=== PATIENT | male | born 1960 | race Caucasian/White ===

== ENCOUNTER 2017-10-30 11:06 | Inpatient (IN) ==
[2017-10-30] MEDS ORDERED: SODIUM CHLORIDE 0.9% 1,000 ML IV STA ×2 (11:15→13:36)
[2017-10-30 11:57] LABS: Alanine Aminotransferase 19 U/L (16-61); Albumin 3.8 G/DL (3.4-5.0); Alkaline Phosphatase 126 U/L (45-117); Aspartate Amino Transferase 16 U/L (0-37); Blood Urea Nitrogen 10 MG/DL (7-18); Calcium 9.2 MG/DL (8.5-10.1); Glucose 93 MG/DL (74-106); Osmolality,Calculated 262.5 MOS/KG (273-304); Potassium 4.9 MMOL/L (3.5-5.1); Sodium 132 MMOL/L (136-145)
[2017-10-30 12:03] LABS: Amorphous Crystals,Urine Occasional /HPF (Few); Apearance,Urine CLEAR (Clear); Bilirubin,Urine Negative (Negative); Blood, Urine Negative (Negative); Glucose,Urine (UA) Negative (Negative); Ketones,Urine Negative (Negative); Mucus,Urine Occasional /LPF (Occasional); Nitrite,Urine Negative (Negative); Protein,Urine Negative; RBC,Urine 1 /HPF (0-4); Squamous Epithelial Cell,Urine Occasional /HPF (0-10); Urine Color Yellow (Yellow); Urine Specific Gravity 1.011 (1.001-1.035); Urine Urobilinogen < 2.0 EU/DL (0.2-1.0); WBC,Urine 1 /HPF (0-6)
[2017-10-30] MEDS ORDERED: ROCURONIUM 100 MG/10 ML VIAL IV ONE ×2 (12:06→12:07)
[2017-10-30] MEDS ORDERED: ETOMIDATE 20 MG/10 ML VIAL IV ONE ×2 (12:06→12:07)
[2017-10-30] MEDS ORDERED: PROPOFOL 1,000 MG/100 ML BOTTLE IV ONE (12:07)
[2017-10-30 12:08] LABS: Barbiturates Screen,Urine Negative (Negative); Benzodiazepines Screen,Urine Negative (Negative); Cannabinoid Screen,Urine Negative (Negative); Opiate Screen,Urine Positive (Negative); Phencyclidine Screen,Urine Negative (Negative)
[2017-10-30] MEDS ORDERED: ASPIRIN 300 MG SUPP RECTAL STA (12:09)
[2017-10-30 12:13] LABS: Lactic Acid 1.2 MMOL/L (0.4-2.0)
[2017-10-30 12:42] LABS: ABG Base Excess -2.9 MMOL/L (-2.5-2.5); ABG Oxygen Saturation 99.5 % (95-100); ABG PCO2 39.8 MM HG (35-48); ABG PH 7.357 (7.35-7.45); ABG TCO2 18.7 MMOL/L (23-27)
[2017-10-30] MEDS: PROPOFOL 1,000 MG/100 ML BOTTLE IV SCH ×3 (12:42→23:45)
[2017-10-30 12:46] LABS: Basophils # 0.1 10*3/uL (0.0-0.2); Basophils % 0.6 % (0.0-0.8); Eosinophils # 0.1 10*3/uL (0.0-0.87); Eosinophils % 1.2 % (0.00-10.9); Hematocrit 48.6 VOL% (42.0-52.0); Hemoglobin 17.3 GM/DL (14.0-18.0); Immature Granulocytes % 0.4 %; Immature Granulocytes Absolute 0.05 #; Lymphocytes # 1.7 10*3/uL (1.4-4.0); Lymphocytes % 14.5 % (21.2-54.2); Mean Corpuscular HGB Conc 35.6 GM/DL (32-36); Mean Corpuscular Hemoglobin 30 PG (27-34); Mean Corpuscular Volume 84.8 FL (87-102); Monocytes % 8.9 % (1.7-12.7); Neutrophils # 8.5 10*3/uL (1.4-7.4); Neutrophils % 74.4 % (38.7-73.9); Platelet Count 219 T/CUMM (130-400); Red Blood Count 5.73 MC/CUMM (3.8-5.5); Red Cell Distribution Width 14.9 % (9.3-17.3); White Blood Count 11.5 T/CUMM (4-12)
[2017-10-30 12:54] LABS: PT Patient Result 10.5 SECS; Partial Thromboplastin Time 26.9 SECS (0-40)
[2017-10-30] MEDS ORDERED: levETIRAcetam 500 MG/5 ML VIAL IV ONE (14:09)
[2017-10-30] MEDS ORDERED: MIDAZOLAM 10 MG/2 ML VIAL IV STA (14:13)
[2017-10-30] MEDS ORDERED: ONDANSETRON 4 MG/2 ML VIAL IV PRN (15:24)
[2017-10-30] MEDS: SODIUM CHLORIDE 0.9% 1,000 ML IV SCH (15:31)
[2017-10-30] MEDS: cefTRIAXone 1,000 MG in SYRINGE 1 EACH IV SCH (15:43)
[2017-10-30] MEDS: ENOXAPARIN 80 MG/0.8 ML SYRINGE SUBCUT SCH (15:43)
[2017-10-30 17:55] LABS: ABG Base Excess -3.5 MMOL/L (-2.5-2.5); ABG HCO3 21.5 MMOL/L (20-26); ABG Oxygen Saturation 98.5 % (95-100); ABG PCO2 32.7 MM HG (35-48); ABG TCO2 17.3 MMOL/L (23-27)
[2017-10-31] MEDS: SODIUM CHLORIDE 0.9% 1,000 ML IV SCH ×3 (00:02→18:12)
[2017-10-31] MEDS: ALBUTEROL/IPRATROPIUM 3 ML NEB RESP TX SCH ×7 (00:35→23:08)
[2017-10-31 02:27] LABS: Allen Test Positive; Pt O2 Delivery Device Ventilator
[2017-10-31 02:28] LABS: ABG Base Excess -4.2 MMOL/L (-2.5-2.5); ABG Oxygen Saturation 99.1 % (95-100); ABG PCO2 32.6 MM HG (35-48); ABG TCO2 16.9 MMOL/L (23-27)
[2017-10-31] MEDS ORDERED: levETIRAcetam 500 MG/5 ML VIAL IV ONE (02:33)
[2017-10-31] MEDS ORDERED: LORazepam 2 MG/1 ML VIAL IV ONE (02:40)
[2017-10-31] MEDS: ENOXAPARIN 80 MG/0.8 ML SYRINGE SUBCUT SCH ×2 (02:47→18:13)
[2017-10-31] MEDS: PROPOFOL 1,000 MG/100 ML BOTTLE IV SCH ×2 (04:50→18:11)
[2017-10-31 05:07] LABS: Basophils # 0.1 10*3/uL (0.0-0.2); Basophils % 0.7 % (0.0-0.8); Eosinophils # 0.2 10*3/uL (0.0-0.87); Eosinophils % 1.6 % (0.00-10.9); Hematocrit 40.8 VOL% (42.0-52.0); Hemoglobin 13.9 GM/DL (14.0-18.0); Immature Granulocytes % 0.4 %; Immature Granulocytes Absolute 0.04 #; Lymphocytes # 1.2 10*3/uL (1.4-4.0); Lymphocytes % 12.3 % (21.2-54.2); Mean Corpuscular HGB Conc 34.1 GM/DL (32-36); Mean Corpuscular Hemoglobin 30 PG (27-34); Mean Platelet Volume 11.8 FL (9.6-12.0); Monocytes # 0.7 10*3/uL (0.11-0.8); Monocytes % 7.3 % (1.7-12.7); Neutrophils # 7.6 10*3/uL (1.4-7.4); Neutrophils % 77.7 % (38.7-73.9); Platelet Count 184 T/CUMM (130-400); Red Blood Count 4.69 MC/CUMM (3.8-5.5); Red Cell Distribution Width 15.2 % (9.3-17.3); White Blood Count 9.8 T/CUMM (4-12)
[2017-10-31 05:37] LABS: Risk Ratio 4.68
[2017-10-31 05:39] LABS: Albumin 2.8 G/DL (3.4-5.0); Bilirubin,Total 1.6 MG/DL (0.2-1.0); Potassium 3.8 MMOL/L (3.5-5.1); Total Protein 6.3 G/DL (6.4-8.3)
[2017-10-31] MEDS: ASPIRIN 325 MG TABLET PO SCH (11:00)
[2017-10-31] MEDS: FAMOTIDINE 20 MG TABLET PO SCH (11:00)
[2017-10-31] MEDS: CLOPIDOGREL 75 MG TABLET PO SCH (11:00)
[2017-10-31] MEDS: HALOPERIDOL 5 MG/ML AMP IV SCH ×2 (11:44→20:30)
[2017-10-31] MEDS: cefTRIAXone 1,000 MG in SYRINGE 1 EACH IV SCH (11:45)
[2017-10-31] MEDS ORDERED: DEXTROSE 50% 25 GM/50 ML VIAL IV PRN (12:28)
[2017-10-31] MEDS ORDERED: GLUCAGON 1 MG VIAL IM PRN (12:28)
[2017-10-31] MEDS: fentaNYL INJ 1,250 MCG in SODIUM CHLORIDE 0.9% 225 ML IV PRN (18:13)
[2017-10-31] MEDS: INSULIN REGULAR 100 UNIT/ML SUBCUT SCH (18:14)
[2017-10-31] MEDS: SIMVASTATIN 20 MG TABLET PO SCH (20:30)
[2017-11-01] MEDS: INSULIN REGULAR 100 UNIT/ML SUBCUT SCH ×5 (00:06→23:45)
[2017-11-01] MEDS: SODIUM CHLORIDE 0.9% 1,000 ML IV SCH ×3 (01:50→19:33)
[2017-11-01] MEDS: fentaNYL INJ 1,250 MCG in SODIUM CHLORIDE 0.9% 225 ML IV PRN ×3 (02:10→17:21)
[2017-11-01] MEDS: ALBUTEROL/IPRATROPIUM 3 ML NEB RESP TX SCH ×6 (02:32→22:59)
[2017-11-01] MEDS: ENOXAPARIN 80 MG/0.8 ML SYRINGE SUBCUT SCH ×2 (04:23→15:48)
[2017-11-01 04:32] LABS: Basophils # 0.1 10*3/uL (0.0-0.2); Basophils % 0.9 % (0.0-0.8); Eosinophils # 0.2 10*3/uL (0.0-0.87); Eosinophils % 2.9 % (0.00-10.9); Hematocrit 37.8 VOL% (42.0-52.0); Hemoglobin 12.7 GM/DL (14.0-18.0); Immature Granulocytes % 0.5 %; Immature Granulocytes Absolute 0.03 #; Lymphocytes # 1.6 10*3/uL (1.4-4.0); Lymphocytes % 24.5 % (21.2-54.2); Mean Corpuscular HGB Conc 33.6 GM/DL (32-36); Mean Corpuscular Hemoglobin 30 PG (27-34); Mean Corpuscular Volume 89.2 FL (87-102); Mean Platelet Volume 11.3 FL (9.6-12.0); Monocytes # 0.8 10*3/uL (0.11-0.8); Monocytes % 11.6 % (1.7-12.7); Neutrophils # 3.9 10*3/uL (1.4-7.4); Neutrophils % 59.6 % (38.7-73.9); Platelet Count 158 T/CUMM (130-400); Red Blood Count 4.24 MC/CUMM (3.8-5.5); Red Cell Distribution Width 15.3 % (9.3-17.3); White Blood Count 6.5 T/CUMM (4-12)
[2017-11-01 04:40] LABS: Allen Test Positive; Pt O2 Delivery Device Ventilator
[2017-11-01 04:41] LABS: ABG Oxygen Saturation 93.3 % (95-100); ABG PCO2 38.3 MM HG (35-48); ABG PH 7.357 (7.35-7.45); ABG PO2 75.6 MM HG (80-95); ABG TCO2 22.2 MMOL/L (23-27)
[2017-11-01 05:09] LABS: Calcium 7.5 MG/DL (8.5-10.1); Osmolality,Calculated 275.5 MOS/KG (273-304); Potassium 4.2 MMOL/L (3.5-5.1); Prealbumin 11.8 MG/DL (20-40)
[2017-11-01] MEDS: PROPOFOL 1,000 MG/100 ML BOTTLE IV SCH ×3 (05:15→22:47)
[2017-11-01] MEDS ORDERED: LIDOCAINE 2% 20 ML VIAL RESP TX ONE (06:57)
[2017-11-01] MEDS ORDERED: LIDOCAINE 1% 20 ML VIAL MISC INJ ONE (06:57)
[2017-11-01] MEDS: CLINDAMYCIN INJ 600 MG in PREMIX 1 EACH IV SCH ×3 (07:39→23:36)
[2017-11-01] MEDS: PIPERACILLIN/TAZOBACTAM 3,375 MG in SODIUM CHLORIDE 0.9% 100 ML IV SCH ×2 (07:40→15:48)
[2017-11-01] MEDS: HALOPERIDOL 5 MG/ML AMP IV SCH ×2 (08:47→20:13)
[2017-11-01] MEDS: FAMOTIDINE 20 MG TABLET PO SCH (08:47)
[2017-11-01] MEDS: ASPIRIN 325 MG TABLET PO SCH (08:47)
[2017-11-01] MEDS: CLOPIDOGREL 75 MG TABLET PO SCH (08:48)
[2017-11-01] MEDS: DEXTROSE 5% NACL 0.45% 1,000 ML IV SCH ×3 (12:02→23:25)
[2017-11-01] MEDS: SIMVASTATIN 20 MG TABLET PO SCH (20:13)
[2017-11-02] MEDS: PIPERACILLIN/TAZOBACTAM 3,375 MG in SODIUM CHLORIDE 0.9% 100 ML IV SCH ×4 (00:14→23:23)
[2017-11-02] MEDS: fentaNYL INJ 1,250 MCG in SODIUM CHLORIDE 0.9% 225 ML IV PRN ×4 (00:49→23:46)
[2017-11-02] MEDS: ALBUTEROL/IPRATROPIUM 3 ML NEB RESP TX SCH ×6 (03:01→23:10)
[2017-11-02] MEDS: ENOXAPARIN 80 MG/0.8 ML SYRINGE SUBCUT SCH ×2 (03:27→15:35)
[2017-11-02 03:44] LABS: ABG Base Excess -4.8 MMOL/L (-2.5-2.5); ABG HCO3 20.5 MMOL/L (20-26); ABG Oxygen Saturation 98.1 % (95-100); ABG PCO2 39.1 MM HG (35-48); ABG PH 7.332 (7.35-7.45); ABG TCO2 18.7 MMOL/L (23-27)
[2017-11-02 03:51] LABS: Basophils # 0.1 10*3/uL (0.0-0.2); Basophils % 0.9 % (0.0-0.8); Eosinophils # 0.2 10*3/uL (0.0-0.87); Hematocrit 35.2 VOL% (42.0-52.0); Immature Granulocytes % 0.4 %; Immature Granulocytes Absolute 0.03 #; Mean Corpuscular HGB Conc 34.1 GM/DL (32-36); Mean Corpuscular Hemoglobin 31 PG (27-34); Mean Corpuscular Volume 89.8 FL (87-102); Mean Platelet Volume 11.5 FL (9.6-12.0); Monocytes # 0.8 10*3/uL (0.11-0.8); Monocytes % 11.8 % (1.7-12.7); Neutrophils # 4.6 10*3/uL (1.4-7.4); Neutrophils % 68.9 % (38.7-73.9); Platelet Count 122 T/CUMM (130-400); Red Blood Count 3.92 MC/CUMM (3.8-5.5); Red Cell Distribution Width 15.3 % (9.3-17.3); White Blood Count 6.7 T/CUMM (4-12)
[2017-11-02 04:29] LABS: Calcium 7.5 MG/DL (8.5-10.1); Osmolality,Calculated 270.1 MOS/KG (273-304); Potassium 4.3 MMOL/L (3.5-5.1)
[2017-11-02] MEDS: DEXTROSE 5% NACL 0.45% 1,000 ML IV SCH ×2 (04:42→09:10)
[2017-11-02] MEDS ORDERED: ALBUTEROL NEB SOLN 5 MG/ML 20 ML/BOTTLE RESP TX PRN (05:30)
[2017-11-02] MEDS ORDERED: FUROSEMIDE 40 MG/4 ML VIAL IV ONE (05:38)
[2017-11-02] MEDS: INSULIN REGULAR 100 UNIT/ML SUBCUT SCH ×4 (05:45→23:23)
[2017-11-02] MEDS ORDERED: LEVALBUTEROL 1.25 MG/3 ML NEB RESP TX PRN (05:48)
[2017-11-02] MEDS: methylPREDNISolone SOD SUC 40 MG/1 ML VIAL IV SCH ×3 (05:53→21:18)
[2017-11-02] MEDS: CLINDAMYCIN INJ 600 MG in PREMIX 1 EACH IV SCH ×3 (07:41→23:02)
[2017-11-02] MEDS: FAMOTIDINE 20 MG TABLET PO SCH (08:55)
[2017-11-02] MEDS: CLOPIDOGREL 75 MG TABLET PO SCH (08:55)
[2017-11-02] MEDS: ASPIRIN 325 MG TABLET PO SCH (08:55)
[2017-11-02] MEDS: HALOPERIDOL 5 MG/ML AMP IV SCH ×2 (10:02→20:45)
[2017-11-02] MEDS: PROPOFOL 1,000 MG/100 ML BOTTLE IV SCH (13:41)
[2017-11-02] MEDS: SIMVASTATIN 20 MG TABLET PO SCH (20:44)
[2017-11-03] MEDS: PROPOFOL 1,000 MG/100 ML BOTTLE IV SCH ×2 (01:27→15:54)
[2017-11-03] MEDS: ENOXAPARIN 80 MG/0.8 ML SYRINGE SUBCUT SCH ×2 (02:31→16:44)
[2017-11-03] MEDS: ALBUTEROL/IPRATROPIUM 3 ML NEB RESP TX SCH ×6 (03:43→22:36)
[2017-11-03 03:49] LABS: Hematocrit 37.5 VOL% (42.0-52.0); Hemoglobin 12.6 GM/DL (14.0-18.0); Immature Granulocytes % 0.3 %; Immature Granulocytes Absolute 0.02 #; Lymphocytes # 0.3 10*3/uL (1.4-4.0); Lymphocytes % 5.2 % (21.2-54.2); Mean Corpuscular HGB Conc 33.6 GM/DL (32-36); Mean Corpuscular Hemoglobin 30 PG (27-34); Mean Corpuscular Volume 88.7 FL (87-102); Mean Platelet Volume 11.3 FL (9.6-12.0); Monocytes # 0.2 10*3/uL (0.11-0.8); Monocytes % 3.8 % (1.7-12.7); Neutrophils # 5.6 10*3/uL (1.4-7.4); Neutrophils % 90.7 % (38.7-73.9); Platelet Count 170 T/CUMM (130-400); Red Blood Count 4.23 MC/CUMM (3.8-5.5); Red Cell Distribution Width 15.1 % (9.3-17.3); White Blood Count 6.1 T/CUMM (4-12)
[2017-11-03 03:50] LABS: ABG Base Excess -2.3 MMOL/L (-2.5-2.5); ABG HCO3 22.4 MMOL/L (20-26); ABG Oxygen Saturation 95.5 % (95-100); ABG PCO2 38.4 MM HG (35-48); ABG PH 7.384 (7.35-7.45); ABG PO2 84.3 MM HG (80-95); ABG TCO2 23.6 MMOL/L (23-27); Allen Test Positive; Pt O2 Delivery Device Ventilator
[2017-11-03 04:04] LABS: Calcium 8.4 MG/DL (8.5-10.1); Potassium 4.4 MMOL/L (3.5-5.1)
[2017-11-03] MEDS: INSULIN REGULAR 100 UNIT/ML SUBCUT SCH ×3 (05:04→18:10)
[2017-11-03] MEDS: methylPREDNISolone SOD SUC 40 MG/1 ML VIAL IV SCH ×3 (05:04→21:13)
[2017-11-03 05:10] LABS: Band Neutrophils 2 % (0-10); Eosinophils 1 % (0-10); Lymphocytes 4 % (20-55); Platelet Estimate Normal; Segmented Neutrophils 91 % (50-85); Total Cells Counted 100
[2017-11-03 05:11] LABS: Anisocytosis Slight; Macrocytosis Slight
[2017-11-03] MEDS: CLINDAMYCIN INJ 600 MG in PREMIX 1 EACH IV SCH ×3 (08:12→23:09)
[2017-11-03] MEDS: HALOPERIDOL 5 MG/ML AMP IV SCH ×2 (08:12→21:12)
[2017-11-03] MEDS: CLOPIDOGREL 75 MG TABLET PO SCH (08:17)
[2017-11-03] MEDS: FAMOTIDINE 20 MG TABLET PO SCH (08:17)
[2017-11-03] MEDS: ASPIRIN 325 MG TABLET PO SCH (08:17)
[2017-11-03] MEDS: fentaNYL INJ 1,250 MCG in SODIUM CHLORIDE 0.9% 225 ML IV PRN ×2 (08:33→15:50)
[2017-11-03] MEDS: PIPERACILLIN/TAZOBACTAM 3,375 MG in SODIUM CHLORIDE 0.9% 100 ML IV SCH ×2 (08:49→17:05)
[2017-11-03] MEDS: SIMVASTATIN 20 MG TABLET PO SCH (21:13)
[2017-11-04] MEDS: fentaNYL INJ 1,250 MCG in SODIUM CHLORIDE 0.9% 225 ML IV PRN ×2 (00:06→11:22)
[2017-11-04] MEDS: PIPERACILLIN/TAZOBACTAM 3,375 MG in SODIUM CHLORIDE 0.9% 100 ML IV SCH ×3 (00:36→16:23)
[2017-11-04] MEDS: INSULIN REGULAR 100 UNIT/ML SUBCUT SCH ×4 (00:36→18:31)
[2017-11-04] MEDS: ALBUTEROL/IPRATROPIUM 3 ML NEB RESP TX SCH ×6 (02:37→23:11)
[2017-11-04] MEDS: PROPOFOL 1,000 MG/100 ML BOTTLE IV SCH ×2 (03:16→13:50)
[2017-11-04] MEDS: ENOXAPARIN 80 MG/0.8 ML SYRINGE SUBCUT SCH ×2 (03:39→16:26)
[2017-11-04 03:49] LABS: ABG Base Excess -0.1 MMOL/L (-2.5-2.5); ABG HCO3 24.2 MMOL/L (20-26); ABG Oxygen Saturation 93.2 % (95-100); ABG PH 7.383 (7.35-7.45); ABG PO2 70.5 MM HG (80-95); ABG TCO2 22.1 MMOL/L (23-27)
[2017-11-04 04:05] LABS: Hematocrit 36.6 VOL% (42.0-52.0); Hemoglobin 12.3 GM/DL (14.0-18.0); Immature Granulocytes % 0.3 %; Immature Granulocytes Absolute 0.02 #; Lymphocytes # 0.4 10*3/uL (1.4-4.0); Lymphocytes % 5.5 % (21.2-54.2); Mean Corpuscular HGB Conc 33.6 GM/DL (32-36); Mean Corpuscular Hemoglobin 30 PG (27-34); Mean Corpuscular Volume 88.8 FL (87-102); Mean Platelet Volume 12.4 FL (9.6-12.0); Monocytes # 0.4 10*3/uL (0.11-0.8); Monocytes % 5.5 % (1.7-12.7); Neutrophils # 5.6 10*3/uL (1.4-7.4); Neutrophils % 88.7 % (38.7-73.9); Platelet Count 136 T/CUMM (130-400); Red Blood Count 4.12 MC/CUMM (3.8-5.5); Red Cell Distribution Width 15.4 % (9.3-17.3); White Blood Count 6.3 T/CUMM (4-12)
[2017-11-04 04:51] LABS: Calcium 8.2 MG/DL (8.5-10.1); Osmolality,Calculated 283.5 MOS/KG (273-304); Potassium 5.1 MMOL/L (3.5-5.1); Prealbumin 12.1 MG/DL (20-40)
[2017-11-04] MEDS: methylPREDNISolone SOD SUC 40 MG/1 ML VIAL IV SCH ×3 (05:34→21:45)
[2017-11-04] MEDS: CLINDAMYCIN INJ 600 MG in PREMIX 1 EACH IV SCH ×3 (08:17→23:12)
[2017-11-04] MEDS: HALOPERIDOL 5 MG/ML AMP IV SCH ×2 (08:47→21:45)
[2017-11-04] MEDS: CLOPIDOGREL 75 MG TABLET PO SCH (08:48)
[2017-11-04] MEDS: FAMOTIDINE 20 MG TABLET PO SCH (08:48)
[2017-11-04] MEDS: ASPIRIN 325 MG TABLET PO SCH (08:48)
[2017-11-04] MEDS: ENALAPRIL 2.5 MG/2 ML VIAL IV PRN (17:53)
[2017-11-04] MEDS: LORazepam 2 MG/1 ML VIAL IV PRN (19:38)
[2017-11-04] MEDS: SIMVASTATIN 20 MG TABLET PO SCH (21:46)
[2017-11-05] MEDS: INSULIN REGULAR 100 UNIT/ML SUBCUT SCH ×4 (00:28→17:53)
[2017-11-05] MEDS: PIPERACILLIN/TAZOBACTAM 3,375 MG in SODIUM CHLORIDE 0.9% 100 ML IV SCH ×3 (00:32→17:43)
[2017-11-05] MEDS: LORazepam 2 MG/1 ML VIAL IV PRN ×4 (02:52→18:50)
[2017-11-05] MEDS: ENOXAPARIN 80 MG/0.8 ML SYRINGE SUBCUT SCH ×2 (03:56→15:50)
[2017-11-05] MEDS: ALBUTEROL/IPRATROPIUM 3 ML NEB RESP TX SCH ×5 (04:50→19:42)
[2017-11-05] MEDS: methylPREDNISolone SOD SUC 40 MG/1 ML VIAL IV SCH ×3 (05:20→22:08)
[2017-11-05] MEDS: ENALAPRIL 2.5 MG/2 ML VIAL IV PRN ×2 (07:05→18:48)
[2017-11-05] MEDS ORDERED: LIDOCAINE 2% 20 ML VIAL RESP TX ONE (07:07)
[2017-11-05] MEDS ORDERED: LIDOCAINE 1% 20 ML VIAL MISC INJ ONE (07:07)
[2017-11-05] MEDS: DORNASE ALFA 2.5 MG/2.5 ML VIAL RESP TX SCH ×2 (07:52→19:42)
[2017-11-05] MEDS: CLINDAMYCIN INJ 600 MG in PREMIX 1 EACH IV SCH ×3 (08:06→23:55)
[2017-11-05] MEDS: HALOPERIDOL 5 MG/ML AMP IV SCH ×2 (09:03→22:20)
[2017-11-05] MEDS: FAMOTIDINE 20 MG TABLET PO SCH (09:04)
[2017-11-05] MEDS: CLOPIDOGREL 75 MG TABLET PO SCH (09:04)
[2017-11-05] MEDS: ASPIRIN 325 MG TABLET PO SCH (09:04)
[2017-11-05] MEDS: SIMVASTATIN 20 MG TABLET PO SCH (22:14)
[2017-11-05] MEDS: ZINC OXIDE PASTE 113 GM TUBE TOP SCH (23:58)
[2017-11-06] MEDS: LORazepam 2 MG/1 ML VIAL IV PRN ×2 (00:07→04:21)
[2017-11-06] MEDS: ALBUTEROL/IPRATROPIUM 3 ML NEB RESP TX SCH ×7 (00:17→23:58)
[2017-11-06] MEDS: PIPERACILLIN/TAZOBACTAM 3,375 MG in SODIUM CHLORIDE 0.9% 100 ML IV SCH ×3 (00:28→17:23)
[2017-11-06] MEDS: INSULIN REGULAR 100 UNIT/ML SUBCUT SCH ×4 (00:30→19:03)
[2017-11-06] MEDS: ENOXAPARIN 80 MG/0.8 ML SYRINGE SUBCUT SCH ×2 (03:55→17:22)
[2017-11-06 04:22] LABS: Basophils % 0.1 % (0.0-0.8); Hematocrit 40.8 VOL% (42.0-52.0); Immature Granulocytes % 0.5 %; Immature Granulocytes Absolute 0.04 #; Lymphocytes # 0.5 10*3/uL (1.4-4.0); Lymphocytes % 6.6 % (21.2-54.2); Mean Corpuscular HGB Conc 34.3 GM/DL (32-36); Mean Corpuscular Hemoglobin 30 PG (27-34); Mean Corpuscular Volume 85.9 FL (87-102); Monocytes # 0.5 10*3/uL (0.11-0.8); Monocytes % 7.2 % (1.7-12.7); Neutrophils # 6.4 10*3/uL (1.4-7.4); Neutrophils % 85.6 % (38.7-73.9); Platelet Count 241 T/CUMM (130-400); Red Blood Count 4.75 MC/CUMM (3.8-5.5); Red Cell Distribution Width 14.8 % (9.3-17.3); White Blood Count 7.5 T/CUMM (4-12)
[2017-11-06 04:44] LABS: Osmolality,Calculated 274.1 MOS/KG (273-304); Potassium 4.2 MMOL/L (3.5-5.1)
[2017-11-06 05:09] LABS: ABG HCO3 26.2 MMOL/L (20-26); ABG Oxygen Saturation 92.8 % (95-100); ABG PH 7.531 (7.35-7.45); ABG PO2 68.4 MM HG (80-95); ABG TCO2 27.2 MMOL/L (23-27); Allen Test Positive; Pt O2 Delivery Device Other
[2017-11-06] MEDS: methylPREDNISolone SOD SUC 40 MG/1 ML VIAL IV SCH ×3 (06:16→22:23)
[2017-11-06] MEDS: DORNASE ALFA 2.5 MG/2.5 ML VIAL RESP TX SCH ×2 (07:54→19:25)
[2017-11-06] MEDS: ENALAPRIL 2.5 MG/2 ML VIAL IV PRN ×2 (08:24→17:24)
[2017-11-06] MEDS ORDERED: LABETALOL 20 MG/4 ML SYRINGE IV ONE (09:28)
[2017-11-06] MEDS: CLINDAMYCIN INJ 600 MG in PREMIX 1 EACH IV SCH ×3 (09:42→23:16)
[2017-11-06] MEDS: CLOPIDOGREL 75 MG TABLET PO SCH (09:45)
[2017-11-06] MEDS: ASPIRIN 325 MG TABLET PO SCH (09:45)
[2017-11-06] MEDS: FAMOTIDINE 20 MG TABLET PO SCH (09:45)
[2017-11-06] MEDS: ZINC OXIDE PASTE 113 GM TUBE TOP SCH ×2 (09:46→21:07)
[2017-11-06] MEDS: HALOPERIDOL 5 MG/ML AMP IV SCH ×2 (09:46→21:07)
[2017-11-06] MEDS: METOPROLOL TARTRATE 25 MG TABLET PO SCH ×2 (10:23→21:11)
[2017-11-06] MEDS ORDERED: LABETALOL 100 MG/20 ML VIAL IV ONE (10:30)
[2017-11-06] MEDS: SIMVASTATIN 20 MG TABLET PO SCH (21:11)
[2017-11-07] MEDS: INSULIN REGULAR 100 UNIT/ML SUBCUT SCH ×4 (00:25→18:52)
[2017-11-07] MEDS: PIPERACILLIN/TAZOBACTAM 3,375 MG in SODIUM CHLORIDE 0.9% 100 ML IV SCH ×3 (00:26→16:50)
[2017-11-07] MEDS: LORazepam 2 MG/1 ML VIAL IV PRN (00:53)
[2017-11-07] MEDS: ENOXAPARIN 80 MG/0.8 ML SYRINGE SUBCUT SCH ×2 (03:38→16:48)
[2017-11-07] MEDS: ALBUTEROL/IPRATROPIUM 3 ML NEB RESP TX SCH ×6 (03:47→22:39)
[2017-11-07 04:14] LABS: Basophils % 0.1 % (0.0-0.8); Hematocrit 44.4 VOL% (42.0-52.0); Hemoglobin 15.3 GM/DL (14.0-18.0); Immature Granulocytes % 0.8 %; Immature Granulocytes Absolute 0.12 #; Lymphocytes # 0.8 10*3/uL (1.4-4.0); Lymphocytes % 4.9 % (21.2-54.2); Mean Corpuscular HGB Conc 34.5 GM/DL (32-36); Mean Corpuscular Hemoglobin 30 PG (27-34); Mean Corpuscular Volume 86.2 FL (87-102); Mean Platelet Volume 10.8 FL (9.6-12.0); Monocytes # 1.4 10*3/uL (0.11-0.8); Monocytes % 9.3 % (1.7-12.7); Neutrophils # 13.1 10*3/uL (1.4-7.4); Neutrophils % 84.9 % (38.7-73.9); Platelet Count 309 T/CUMM (130-400); Red Blood Count 5.15 MC/CUMM (3.8-5.5); Red Cell Distribution Width 14.5 % (9.3-17.3); White Blood Count 15.4 T/CUMM (4-12)
[2017-11-07 05:04] LABS: Band Neutrophils 2 % (0-10); Lymphocytes 3 % (20-55); Platelet Estimate Normal; Segmented Neutrophils 88 % (50-85); Total Cells Counted 100
[2017-11-07 05:09] LABS: Calcium 8.8 MG/DL (8.5-10.1); Osmolality,Calculated 268.5 MOS/KG (273-304); Potassium 4.4 MMOL/L (3.5-5.1)
[2017-11-07 05:34] LABS: Prealbumin 24.6 MG/DL (20-40)
[2017-11-07] MEDS: methylPREDNISolone SOD SUC 40 MG/1 ML VIAL IV SCH ×3 (05:35→21:54)
[2017-11-07] MEDS: CLINDAMYCIN INJ 600 MG in PREMIX 1 EACH IV SCH ×3 (06:31→22:59)
[2017-11-07] MEDS: DORNASE ALFA 2.5 MG/2.5 ML VIAL RESP TX SCH ×2 (08:00→19:08)
[2017-11-07] MEDS: FAMOTIDINE 20 MG TABLET PO SCH (08:52)
[2017-11-07] MEDS: HALOPERIDOL 5 MG/ML AMP IV SCH ×2 (08:53→21:18)
[2017-11-07] MEDS: METOPROLOL TARTRATE 25 MG TABLET PO SCH ×2 (08:53→21:18)
[2017-11-07] MEDS: ZINC OXIDE PASTE 113 GM TUBE TOP SCH ×2 (08:58→21:18)
[2017-11-07] MEDS: ASPIRIN 325 MG TABLET PO SCH (16:44)
[2017-11-07] MEDS: SIMVASTATIN 20 MG TABLET PO SCH (21:18)
[2017-11-08] MEDS: PIPERACILLIN/TAZOBACTAM 3,375 MG in SODIUM CHLORIDE 0.9% 100 ML IV SCH ×3 (00:29→15:09)
[2017-11-08] MEDS: INSULIN REGULAR 100 UNIT/ML SUBCUT SCH ×4 (00:29→18:30)
[2017-11-08] MEDS: ALBUTEROL/IPRATROPIUM 3 ML NEB RESP TX SCH ×6 (02:36→23:09)
[2017-11-08] MEDS: ENOXAPARIN 80 MG/0.8 ML SYRINGE SUBCUT SCH (04:26)
[2017-11-08 05:48] LABS: Basophils % 0.2 % (0.0-0.8); Hematocrit 44.4 VOL% (42.0-52.0); Immature Granulocytes % 0.6 %; Lymphocytes # 0.7 10*3/uL (1.4-4.0); Lymphocytes % 4.2 % (21.2-54.2); Mean Corpuscular Hemoglobin 30 PG (27-34); Mean Corpuscular Volume 82.7 FL (87-102); Mean Platelet Volume 11.6 FL (9.6-12.0); Monocytes # 1.4 10*3/uL (0.11-0.8); Monocytes % 8.1 % (1.7-12.7); Neutrophils # 15.1 10*3/uL (1.4-7.4); Neutrophils % 86.9 % (38.7-73.9); Platelet Count 291 T/CUMM (130-400); Red Blood Count 5.37 MC/CUMM (3.8-5.5); Red Cell Distribution Width 14.7 % (9.3-17.3); White Blood Count 17.4 T/CUMM (4-12)
[2017-11-08] MEDS: methylPREDNISolone SOD SUC 40 MG/1 ML VIAL IV SCH ×3 (05:59→22:43)
[2017-11-08 06:05] LABS: Calcium 8.3 MG/DL (8.5-10.1); Osmolality,Calculated 272.5 MOS/KG (273-304); Potassium 4.7 MMOL/L (3.5-5.1)
[2017-11-08 07:01] LABS: Hypochromasia 1+; Lymphocytes 8 % (20-55); Ovalocytes Slight; Platelet Estimate Adequate; Segmented Neutrophils 90 % (50-85); Total Cells Counted 100
[2017-11-08] MEDS: DORNASE ALFA 2.5 MG/2.5 ML VIAL RESP TX SCH ×2 (07:22→19:19)
[2017-11-08] MEDS: PANTOPRAZOLE 40 MG VIAL IV SCH ×3 (07:41→20:21)
[2017-11-08] MEDS: METOPROLOL TARTRATE 25 MG TABLET PO SCH ×2 (08:36→20:21)
[2017-11-08] MEDS: ASPIRIN 325 MG TABLET PO SCH (08:36)
[2017-11-08] MEDS: HALOPERIDOL 5 MG/ML AMP IV SCH ×2 (08:36→20:23)
[2017-11-08] MEDS: ZINC OXIDE PASTE 113 GM TUBE TOP SCH ×2 (08:37→20:21)
[2017-11-08] MEDS ORDERED: PANTOPRAZOLE 40 MG VIAL IV SCH (09:00)
[2017-11-08 19:01] LABS: Hematocrit 44.8 VOL% (42.0-52.0); Hemoglobin 15.6 GM/DL (14.0-18.0)
[2017-11-08] MEDS: SIMVASTATIN 20 MG TABLET PO SCH (20:21)
[2017-11-09] MEDS: INSULIN REGULAR 100 UNIT/ML SUBCUT SCH ×4 (00:08→18:29)
[2017-11-09] MEDS: PIPERACILLIN/TAZOBACTAM 3,375 MG in SODIUM CHLORIDE 0.9% 100 ML IV SCH ×3 (00:08→15:58)
[2017-11-09] MEDS: ALBUTEROL/IPRATROPIUM 3 ML NEB RESP TX SCH ×5 (02:25→19:45)
[2017-11-09 05:25] LABS: Basophils % 0.1 % (0.0-0.8); Hematocrit 44.1 VOL% (42.0-52.0); Hemoglobin 15.5 GM/DL (14.0-18.0); Immature Granulocytes % 0.8 %; Immature Granulocytes Absolute 0.16 #; Lymphocytes # 0.7 10*3/uL (1.4-4.0); Lymphocytes % 3.7 % (21.2-54.2); Mean Corpuscular HGB Conc 35.1 GM/DL (32-36); Mean Corpuscular Hemoglobin 31 PG (27-34); Mean Corpuscular Volume 86.6 FL (87-102); Mean Platelet Volume 11.5 FL (9.6-12.0); Monocytes # 1.2 10*3/uL (0.11-0.8); Monocytes % 6.4 % (1.7-12.7); Neutrophils # 17.4 10*3/uL (1.4-7.4); Platelet Count 278 T/CUMM (130-400); Red Blood Count 5.09 MC/CUMM (3.8-5.5); Red Cell Distribution Width 14.9 % (9.3-17.3); White Blood Count 19.5 T/CUMM (4-12)
[2017-11-09] MEDS: methylPREDNISolone SOD SUC 40 MG/1 ML VIAL IV SCH ×2 (05:39→13:36)
[2017-11-09 05:48] LABS: Calcium 8.4 MG/DL (8.5-10.1); Osmolality,Calculated 285.8 MOS/KG (273-304); Potassium 4.3 MMOL/L (3.5-5.1)
[2017-11-09 06:11] LABS: Band Neutrophils 1 % (0-10); Lymphocytes 7 % (20-55); Segmented Neutrophils 87 % (50-85); Total Cells Counted 100
[2017-11-09 06:12] LABS: Platelet Estimate Normal
[2017-11-09] MEDS: DORNASE ALFA 2.5 MG/2.5 ML VIAL RESP TX SCH ×2 (07:13→19:45)
[2017-11-09 07:16] LABS: Hematocrit 47.5 VOL% (42.0-52.0); Hemoglobin 16.5 GM/DL (14.0-18.0)
[2017-11-09] MEDS: HALOPERIDOL 5 MG/ML AMP IV SCH ×2 (08:43→22:22)
[2017-11-09] MEDS: ASPIRIN 325 MG TABLET PO SCH (08:43)
[2017-11-09] MEDS: PANTOPRAZOLE 40 MG VIAL IV SCH ×2 (08:44→22:19)
[2017-11-09] MEDS: METOPROLOL TARTRATE 25 MG TABLET PO SCH ×2 (08:44→22:19)
[2017-11-09] MEDS: ZINC OXIDE PASTE 113 GM TUBE TOP SCH ×2 (09:01→22:24)
[2017-11-09] MEDS ORDERED: methylPREDNISolone SOD SUC 40 MG/1 ML VIAL IV SCH (15:30)
[2017-11-09 19:18] LABS: Hematocrit 42.6 VOL% (42.0-52.0); Hemoglobin 15.3 GM/DL (14.0-18.0)
[2017-11-09] MEDS: SIMVASTATIN 20 MG TABLET PO SCH (22:18)
[2017-11-09] MEDS: ENOXAPARIN 40 MG/0.4 ML SYRINGE SUBCUT SCH (22:19)
[2017-11-10] MEDS: ALBUTEROL/IPRATROPIUM 3 ML NEB RESP TX SCH ×7 (00:07→23:07)
[2017-11-10] MEDS: INSULIN REGULAR 100 UNIT/ML SUBCUT SCH ×5 (00:31→23:20)
[2017-11-10] MEDS: PIPERACILLIN/TAZOBACTAM 3,375 MG in SODIUM CHLORIDE 0.9% 100 ML IV SCH ×4 (00:42→23:20)
[2017-11-10] MEDS: methylPREDNISolone SOD SUC 40 MG/1 ML VIAL IV SCH ×2 (00:42→14:25)
[2017-11-10] MEDS: DORNASE ALFA 2.5 MG/2.5 ML VIAL RESP TX SCH ×2 (06:55→19:11)
[2017-11-10] MEDS: ZINC OXIDE PASTE 113 GM TUBE TOP SCH ×2 (08:39→20:23)
[2017-11-10] MEDS: HALOPERIDOL 5 MG/ML AMP IV SCH (08:41)
[2017-11-10] MEDS: PANTOPRAZOLE 40 MG VIAL IV SCH ×2 (08:42→20:23)
[2017-11-10] MEDS: METOPROLOL TARTRATE 25 MG TABLET PO SCH ×2 (08:42→20:23)
[2017-11-10] MEDS: SIMVASTATIN 20 MG TABLET PO SCH (20:24)
[2017-11-11] MEDS: methylPREDNISolone SOD SUC 40 MG/1 ML VIAL IV SCH ×2 (00:22→13:14)
[2017-11-11] MEDS: ALBUTEROL/IPRATROPIUM 3 ML NEB RESP TX SCH ×6 (03:07→23:08)
[2017-11-11 05:11] LABS: Basophils % 0.1 % (0.0-0.8); Hematocrit 45.6 VOL% (42.0-52.0); Hemoglobin 16.1 GM/DL (14.0-18.0); Immature Granulocytes % 0.7 %; Immature Granulocytes Absolute 0.16 #; Lymphocytes # 0.6 10*3/uL (1.4-4.0); Lymphocytes % 2.6 % (21.2-54.2); Mean Corpuscular HGB Conc 35.3 GM/DL (32-36); Mean Corpuscular Hemoglobin 30 PG (27-34); Mean Corpuscular Volume 85.2 FL (87-102); Mean Platelet Volume 12.3 FL (9.6-12.0); Monocytes # 0.7 10*3/uL (0.11-0.8); Monocytes % 3.1 % (1.7-12.7); Neutrophils # 20.5 10*3/uL (1.4-7.4); Neutrophils % 93.5 % (38.7-73.9); Platelet Count 187 T/CUMM (130-400); Red Blood Count 5.35 MC/CUMM (3.8-5.5); Red Cell Distribution Width 15.5 % (9.3-17.3); White Blood Count 21.9 T/CUMM (4-12)
[2017-11-11] MEDS: INSULIN REGULAR 100 UNIT/ML SUBCUT SCH ×3 (05:26→20:47)
[2017-11-11 05:28] LABS: Calcium 8.3 MG/DL (8.5-10.1); Osmolality,Calculated 285.7 MOS/KG (273-304); Potassium 4.4 MMOL/L (3.5-5.1)
[2017-11-11] MEDS ORDERED: ceFAZolin 1,000 MG in SYRINGE 1 EACH IV ONE (06:00)
[2017-11-11 06:18] LABS: Hypochromasia Slight; Lymphocytes 2 % (20-55); Ovalocytes Slight; Platelet Estimate Adequate; Segmented Neutrophils 96 % (50-85); Total Cells Counted 100
[2017-11-11] MEDS: DORNASE ALFA 2.5 MG/2.5 ML VIAL RESP TX SCH ×2 (07:31→19:30)
[2017-11-11] MEDS ORDERED: SUGAMMADEX 200 MG/2 ML VIAL IV ONE (08:28)
[2017-11-11] MEDS ORDERED: ePHEDrine 50 MG/ML AMP ONE (09:17)
[2017-11-11] MEDS ORDERED: PROPOFOL 200 MG/20 ML VIAL IV ONE (09:17)
[2017-11-11] MEDS ORDERED: SEVOFLURANE 1 UNIT/15 MINUTE INH ONE (09:17)
[2017-11-11] MEDS ORDERED: fentaNYL 100 MCG/2 ML VIAL ONE (09:17)
[2017-11-11] MEDS ORDERED: ETOMIDATE 40 MG/20 ML VIAL IV ONE (09:18)
[2017-11-11] MEDS ORDERED: ROCURONIUM 100 MG/10 ML VIAL IV ONE (09:18)
[2017-11-11] MEDS: PIPERACILLIN/TAZOBACTAM 3,375 MG in SODIUM CHLORIDE 0.9% 100 ML IV SCH ×2 (09:29→17:25)
[2017-11-11] MEDS: METOPROLOL TARTRATE 25 MG TABLET PO SCH ×2 (09:30→22:52)
[2017-11-11] MEDS: ZINC OXIDE PASTE 113 GM TUBE TOP SCH ×2 (09:30→22:52)
[2017-11-11] MEDS: PANTOPRAZOLE 40 MG VIAL IV SCH (22:37)
[2017-11-11] MEDS: SIMVASTATIN 20 MG TABLET PO SCH (22:52)
[2017-11-12] MEDS: INSULIN REGULAR 100 UNIT/ML SUBCUT SCH ×4 (00:19→18:32)
[2017-11-12] MEDS: methylPREDNISolone SOD SUC 40 MG/1 ML VIAL IV SCH ×2 (00:39→13:49)
[2017-11-12] MEDS: PIPERACILLIN/TAZOBACTAM 3,375 MG in SODIUM CHLORIDE 0.9% 100 ML IV SCH ×3 (00:43→16:13)
[2017-11-12] MEDS: ALBUTEROL/IPRATROPIUM 3 ML NEB RESP TX SCH ×6 (03:13→22:58)
[2017-11-12] MEDS ORDERED: hydrALAZINE 20 MG/1 ML VIAL IV PRN (07:26)
[2017-11-12] MEDS: DORNASE ALFA 2.5 MG/2.5 ML VIAL RESP TX SCH ×2 (07:48→19:13)
[2017-11-12] MEDS: LANSOPRAZOLE ODT 30 MG TABLET PEG SCH (10:07)
[2017-11-12] MEDS: LISINOPRIL 10 MG TABLET PO SCH ×2 (10:07→20:25)
[2017-11-12] MEDS: METOPROLOL TARTRATE 25 MG TABLET PO SCH ×2 (10:08→20:25)
[2017-11-12] MEDS: ZINC OXIDE PASTE 113 GM TUBE TOP SCH ×2 (10:09→20:25)
[2017-11-12] MEDS: ASPIRIN 325 MG TABLET PO SCH (10:09)
[2017-11-12] MEDS: ENOXAPARIN 40 MG/0.4 ML SYRINGE SUBCUT SCH (20:23)
[2017-11-12] MEDS: SIMVASTATIN 20 MG TABLET PO SCH (20:25)
[2017-11-13] MEDS: INSULIN REGULAR 100 UNIT/ML SUBCUT SCH ×4 (00:23→18:00)
[2017-11-13] MEDS: methylPREDNISolone SOD SUC 40 MG/1 ML VIAL IV SCH ×2 (00:24→12:33)
[2017-11-13] MEDS: PIPERACILLIN/TAZOBACTAM 3,375 MG in SODIUM CHLORIDE 0.9% 100 ML IV SCH ×2 (00:24→09:47)
[2017-11-13] MEDS: ALBUTEROL/IPRATROPIUM 3 ML NEB RESP TX SCH ×6 (02:27→22:41)
[2017-11-13 06:42] LABS: Basophils % 0.2 % (0.0-0.8); Hematocrit 47.9 VOL% (42.0-52.0); Hemoglobin 16.3 GM/DL (14.0-18.0); Immature Granulocytes % 1.1 %; Immature Granulocytes Absolute 0.28 #; Lymphocytes # 0.8 10*3/uL (1.4-4.0); Lymphocytes % 2.9 % (21.2-54.2); Mean Corpuscular Hemoglobin 30 PG (27-34); Mean Corpuscular Volume 88.9 FL (87-102); Mean Platelet Volume 11.4 FL (9.6-12.0); Monocytes # 0.9 10*3/uL (0.11-0.8); Monocytes % 3.4 % (1.7-12.7); Neutrophils # 24.4 10*3/uL (1.4-7.4); Neutrophils % 92.4 % (38.7-73.9); Platelet Count 294 T/CUMM (130-400); Red Blood Count 5.39 MC/CUMM (3.8-5.5); Red Cell Distribution Width 15.4 % (9.3-17.3); White Blood Count 26.3 T/CUMM (4-12)
[2017-11-13 07:05] LABS: Hypochromasia 1+; Lymphocytes 2 % (20-55); Ovalocytes Slight; Platelet Estimate Adequate; Segmented Neutrophils 93 % (50-85); Total Cells Counted 100
[2017-11-13 07:16] LABS: Calcium 8.4 MG/DL (8.5-10.1); Osmolality,Calculated 296.4 MOS/KG (273-304); Potassium 4.6 MMOL/L (3.5-5.1)
[2017-11-13] MEDS: DORNASE ALFA 2.5 MG/2.5 ML VIAL RESP TX SCH (07:20)
[2017-11-13] MEDS: METOPROLOL TARTRATE 25 MG TABLET PO SCH ×2 (09:47→21:05)
[2017-11-13] MEDS: LANSOPRAZOLE ODT 30 MG TABLET PEG SCH (09:47)
[2017-11-13] MEDS: ASPIRIN 325 MG TABLET PO SCH (09:47)
[2017-11-13] MEDS: ZINC OXIDE PASTE 113 GM TUBE TOP SCH ×2 (09:47→21:05)
[2017-11-13] MEDS: amLODIPine 5 MG TABLET PO SCH (09:47)
[2017-11-13] MEDS ORDERED: AMOXICILLIN/CLAV ES 600 125 ML/BOTTLE PO SCH (21:00)
[2017-11-13] MEDS: SIMVASTATIN 20 MG TABLET PO SCH (21:05)
[2017-11-13] MEDS: ENOXAPARIN 40 MG/0.4 ML SYRINGE SUBCUT SCH (21:05)
[2017-11-13 22:56] LABS: ABG Base Excess -1.4 MMOL/L (-2.5-2.5); ABG HCO3 23.2 MMOL/L (20-26); ABG Oxygen Saturation 97.5 % (95-100); ABG PCO2 27.9 MM HG (35-48); ABG PH 7.474 (7.35-7.45); Allen Test Positive; Pt O2 Delivery Device Other
[2017-11-14] MEDS: ALBUTEROL/IPRATROPIUM 3 ML NEB RESP TX SCH ×6 (02:50→23:50)
[2017-11-14] MEDS: methylPREDNISolone SOD SUC 40 MG/1 ML VIAL IV SCH ×2 (03:03→13:41)
[2017-11-14] MEDS: INSULIN REGULAR 100 UNIT/ML SUBCUT SCH ×4 (03:03→18:01)
[2017-11-14 07:10] LABS: Basophils # 0.1 10*3/uL (0.0-0.2); Basophils % 0.2 % (0.0-0.8); Hematocrit 48.1 VOL% (42.0-52.0); Hemoglobin 16.5 GM/DL (14.0-18.0); Immature Granulocytes % 0.9 %; Immature Granulocytes Absolute 0.25 #; Lymphocytes # 0.6 10*3/uL (1.4-4.0); Mean Corpuscular HGB Conc 34.3 GM/DL (32-36); Mean Corpuscular Hemoglobin 30 PG (27-34); Mean Corpuscular Volume 87.5 FL (87-102); Mean Platelet Volume 12.1 FL (9.6-12.0); Monocytes # 1.1 10*3/uL (0.11-0.8); Monocytes % 3.8 % (1.7-12.7); Neutrophils # 26.7 10*3/uL (1.4-7.4); Neutrophils % 93.1 % (38.7-73.9); Platelet Count 258 T/CUMM (130-400); Red Cell Distribution Width 15.6 % (9.3-17.3); White Blood Count 28.6 T/CUMM (4-12)
[2017-11-14 07:27] LABS: Calcium 8.7 MG/DL (8.5-10.1); Potassium 4.6 MMOL/L (3.5-5.1)
[2017-11-14 07:29] LABS: Hypochromasia 1+; Lymphocytes 3 % (20-55); Platelet Estimate Adequate; Segmented Neutrophils 92 % (50-85); Total Cells Counted 100
[2017-11-14] MEDS: CEFEPIME 1,000 MG in SYRINGE 1 EACH IV SCH ×2 (08:25→18:52)
[2017-11-14] MEDS: LANSOPRAZOLE ODT 30 MG TABLET PEG SCH (09:21)
[2017-11-14] MEDS: METOPROLOL TARTRATE 25 MG TABLET PO SCH ×2 (09:21→21:07)
[2017-11-14] MEDS: ASPIRIN 325 MG TABLET PO SCH (09:21)
[2017-11-14] MEDS: ZINC OXIDE PASTE 113 GM TUBE TOP SCH ×2 (09:21→21:07)
[2017-11-14] MEDS: FLUCONAZOLE INJ 100 MG in IV BAG 1 EACH IV SCH (09:21)
[2017-11-14] MEDS: amLODIPine 5 MG TABLET PO SCH (09:21)
[2017-11-14 10:56] LABS: Apearance,Urine CLEAR (Clear); Bacteria,Urine Occasional /HPF (Few); Bilirubin,Urine Negative (Negative); Blood, Urine Small mg/dL (Negative); Glucose,Urine (UA) Negative (Negative); Ketones,Urine Negative (Negative); Mucus,Urine Occasional /LPF (Occasional); Nitrite,Urine Negative (Negative); Protein,Urine Negative; RBC,Urine 74 /HPF (0-4); Squamous Epithelial Cell,Urine Occasional /HPF (0-10); Urine Color Yellow (Yellow); Urine Specific Gravity 1.025 (1.001-1.035); Urine Urobilinogen < 2.0 EU/DL (0.2-1.0); WBC,Urine 3 /HPF (0-6)
[2017-11-14] MEDS: SIMVASTATIN 20 MG TABLET PO SCH (21:07)
[2017-11-14] MEDS: ENOXAPARIN 40 MG/0.4 ML SYRINGE SUBCUT SCH (21:07)
[2017-11-15] MEDS: INSULIN REGULAR 100 UNIT/ML SUBCUT SCH ×5 (01:33→23:19)
[2017-11-15] MEDS: methylPREDNISolone SOD SUC 40 MG/1 ML VIAL IV SCH ×2 (01:33→14:23)
[2017-11-15] MEDS: ALBUTEROL/IPRATROPIUM 3 ML NEB RESP TX SCH ×5 (03:20→19:18)
[2017-11-15 06:10] LABS: Basophils # 0.1 10*3/uL (0.0-0.2); Basophils % 0.2 % (0.0-0.8); Hematocrit 46.7 VOL% (42.0-52.0); Hemoglobin 16.1 GM/DL (14.0-18.0); Immature Granulocytes % 0.9 %; Immature Granulocytes Absolute 0.26 #; Lymphocytes # 0.6 10*3/uL (1.4-4.0); Lymphocytes % 2.2 % (21.2-54.2); Mean Corpuscular HGB Conc 34.5 GM/DL (32-36); Mean Corpuscular Hemoglobin 30 PG (27-34); Mean Corpuscular Volume 86.5 FL (87-102); Mean Platelet Volume 12.7 FL (9.6-12.0); Monocytes # 0.9 10*3/uL (0.11-0.8); Monocytes % 3.1 % (1.7-12.7); Neutrophils # 26.2 10*3/uL (1.4-7.4); Neutrophils % 93.6 % (38.7-73.9); Platelet Count 209 T/CUMM (130-400); Red Cell Distribution Width 15.4 % (9.3-17.3)
[2017-11-15 06:33] LABS: Lymphocytes 1 % (20-55); Segmented Neutrophils 94 % (50-85)
[2017-11-15 06:34] LABS: Platelet Estimate Normal
[2017-11-15 06:35] LABS: Total Cells Counted 100
[2017-11-15] MEDS ORDERED: PROMETHAZINE 25 MG/1 ML VIAL IM ONE (07:00)
[2017-11-15] MEDS ORDERED: MIDAZOLAM 2 MG/2 ML VIAL ONE (07:05)
[2017-11-15] MEDS: CEFEPIME 1,000 MG in SYRINGE 1 EACH IV SCH ×2 (07:09→18:00)
[2017-11-15] MEDS ORDERED: LIDOCAINE 2% 20 ML VIAL RESP TX ONE (07:30)
[2017-11-15] MEDS ORDERED: MIDAZOLAM 10 MG/2 ML VIAL IV ONE (07:30)
[2017-11-15] MEDS ORDERED: LIDOCAINE 1% 20 ML VIAL MISC INJ ONE (07:30)
[2017-11-15] MEDS: METOPROLOL TARTRATE 25 MG TABLET PO SCH ×2 (11:03→21:40)
[2017-11-15] MEDS: amLODIPine 5 MG TABLET PO SCH (11:03)
[2017-11-15] MEDS: ZINC OXIDE PASTE 113 GM TUBE TOP SCH (11:03)
[2017-11-15] MEDS: ASPIRIN 325 MG TABLET PO SCH (11:03)
[2017-11-15] MEDS: LANSOPRAZOLE ODT 30 MG TABLET PEG SCH (11:03)
[2017-11-15] MEDS: FLUCONAZOLE INJ 100 MG in IV BAG 1 EACH IV SCH (11:04)
[2017-11-15] MEDS ORDERED: BISACODYL 10 MG SUPP RECTAL PRN (14:28)
[2017-11-15] MEDS: DESITIN 4OZ/NYSTATIN 15 GRAM MIXTURE PASTE TOP SCH ×2 (15:53→21:40)
[2017-11-15] MEDS ORDERED: AMOXICILLIN 50 MG/ML 150 ML/BOTTLE PEG SCH (21:00)
[2017-11-15] MEDS: SIMVASTATIN 20 MG TABLET PO SCH (21:40)
[2017-11-15] MEDS: ENOXAPARIN 40 MG/0.4 ML SYRINGE SUBCUT SCH (21:40)
[2017-11-16] MEDS: methylPREDNISolone SOD SUC 40 MG/1 ML VIAL IV SCH ×2 (02:05→12:09)
[2017-11-16] MEDS: ALBUTEROL/IPRATROPIUM 3 ML NEB RESP TX SCH ×7 (03:46→23:34)
[2017-11-16 05:21] LABS: Basophils % 0.1 % (0.0-0.8); Hematocrit 47.6 VOL% (42.0-52.0); Hemoglobin 15.9 GM/DL (14.0-18.0); Immature Granulocytes % 0.9 %; Immature Granulocytes Absolute 0.18 #; Lymphocytes # 0.5 10*3/uL (1.4-4.0); Lymphocytes % 2.4 % (21.2-54.2); Mean Corpuscular HGB Conc 33.4 GM/DL (32-36); Mean Corpuscular Hemoglobin 30 PG (27-34); Mean Corpuscular Volume 88.3 FL (87-102); Mean Platelet Volume 12.6 FL (9.6-12.0); Monocytes # 0.9 10*3/uL (0.11-0.8); Monocytes % 4.2 % (1.7-12.7); Neutrophils # 19.5 10*3/uL (1.4-7.4); Neutrophils % 92.4 % (38.7-73.9); Platelet Count 277 T/CUMM (130-400); Red Blood Count 5.39 MC/CUMM (3.8-5.5); White Blood Count 21.1 T/CUMM (4-12)
[2017-11-16] MEDS: INSULIN REGULAR 100 UNIT/ML SUBCUT SCH ×3 (05:44→19:01)
[2017-11-16] MEDS: CEFEPIME 1,000 MG in SYRINGE 1 EACH IV SCH ×2 (06:11→18:00)
[2017-11-16 06:34] LABS: Lymphocytes 3 % (20-55); Platelet Estimate Normal; Segmented Neutrophils 94 % (50-85); Total Cells Counted 100
[2017-11-16] MEDS: amLODIPine 5 MG TABLET PO SCH (09:24)
[2017-11-16] MEDS: ASPIRIN 325 MG TABLET PO SCH (09:24)
[2017-11-16] MEDS: LANSOPRAZOLE ODT 30 MG TABLET PEG SCH (09:24)
[2017-11-16] MEDS: FLUCONAZOLE INJ 100 MG in IV BAG 1 EACH IV SCH (09:24)
[2017-11-16] MEDS: METOPROLOL TARTRATE 25 MG TABLET PO SCH ×2 (09:24→21:10)
[2017-11-16] MEDS: DESITIN 4OZ/NYSTATIN 15 GRAM MIXTURE PASTE TOP SCH ×2 (09:49→21:11)
[2017-11-16] MEDS: INSULIN GLARGINE 100 UNIT/ML SUBCUT SCH (21:09)
[2017-11-16] MEDS: ENOXAPARIN 40 MG/0.4 ML SYRINGE SUBCUT SCH (21:09)
[2017-11-16] MEDS: SIMVASTATIN 20 MG TABLET PO SCH (21:10)
[2017-11-17] MEDS: INSULIN REGULAR 100 UNIT/ML SUBCUT SCH ×4 (00:30→19:05)
[2017-11-17] MEDS: methylPREDNISolone SOD SUC 40 MG/1 ML VIAL IV SCH ×2 (01:28→13:46)
[2017-11-17] MEDS: ALBUTEROL/IPRATROPIUM 3 ML NEB RESP TX SCH ×5 (03:45→19:42)
[2017-11-17] MEDS: CEFEPIME 1,000 MG in SYRINGE 1 EACH IV SCH ×2 (06:17→18:08)
[2017-11-17 06:30] LABS: Calcium 8.8 MG/DL (8.5-10.1); Osmolality,Calculated 293.7 MOS/KG (273-304); Potassium 4.8 MMOL/L (3.5-5.1)
[2017-11-17] MEDS: FLUCONAZOLE INJ 100 MG in IV BAG 1 EACH IV SCH (09:30)
[2017-11-17] MEDS: LANSOPRAZOLE ODT 30 MG TABLET PEG SCH (09:33)
[2017-11-17] MEDS: ASPIRIN 325 MG TABLET PO SCH (09:33)
[2017-11-17] MEDS: amLODIPine 5 MG TABLET PO SCH (09:33)
[2017-11-17] MEDS: METOPROLOL TARTRATE 25 MG TABLET PO SCH ×2 (09:33→21:07)
[2017-11-17] MEDS: DESITIN 4OZ/NYSTATIN 15 GRAM MIXTURE PASTE TOP SCH ×2 (13:19→21:08)
[2017-11-17] MEDS: INSULIN GLARGINE 100 UNIT/ML SUBCUT SCH (21:07)
[2017-11-17] MEDS: SIMVASTATIN 20 MG TABLET PO SCH (21:07)
[2017-11-17] MEDS: ENOXAPARIN 40 MG/0.4 ML SYRINGE SUBCUT SCH (21:08)
[2017-11-18] MEDS: ALBUTEROL/IPRATROPIUM 3 ML NEB RESP TX SCH ×4 (00:11→11:50)
[2017-11-18] MEDS: INSULIN REGULAR 100 UNIT/ML SUBCUT SCH ×3 (01:09→11:52)
[2017-11-18] MEDS: methylPREDNISolone SOD SUC 40 MG/1 ML VIAL IV SCH ×2 (01:10→12:47)
[2017-11-18 06:06] LABS: Calcium 8.7 MG/DL (8.5-10.1); Osmolality,Calculated 292.7 MOS/KG (273-304); Potassium 5.3 MMOL/L (3.5-5.1)
[2017-11-18] MEDS ORDERED: ACETAMINOPHEN 325 MG TABLET PO PRN (06:06)
[2017-11-18 06:11] LABS: Prealbumin 35.5 MG/DL (20-40)
[2017-11-18] MEDS: CEFEPIME 1,000 MG in SYRINGE 1 EACH IV SCH (06:25)
[2017-11-18] MEDS: FLUCONAZOLE INJ 100 MG in IV BAG 1 EACH IV SCH (08:58)
[2017-11-18] MEDS: METOPROLOL TARTRATE 25 MG TABLET PO SCH (10:25)
[2017-11-18] MEDS: ASPIRIN 325 MG TABLET PO SCH (10:25)
[2017-11-18] MEDS: amLODIPine 5 MG TABLET PO SCH (10:26)
[2017-11-18] MEDS: LANSOPRAZOLE ODT 30 MG TABLET PEG SCH (10:26)
[2017-11-18] MEDS: DESITIN 4OZ/NYSTATIN 15 GRAM MIXTURE PASTE TOP SCH (10:27)
[2017-11-18] MEDS ORDERED: ZINC OXIDE PASTE 113 GM TUBE TOP SCH (11:30)
[2017-11-18 15:28] VITALS: BP 114/85
== END 2017-11-18 15:48 | DRG 64 ==
LOC: N.ED 11:06 → SUATTDRO 14:10 → N.EDINP 14:10 → N.ICU 17:15 → N.5E 11-11 11:05
PROVIDERS: ADMIT Internal Medicine; ATTEND Hospitalist
PROC: EGDWPEG (ICD-10-PCS; 2017-11-11 06:05)